=== PATIENT | female | born 1975 | race Caucasian/White ===

== ENCOUNTER 2016-06-03 11:02 | Emergency (ER) | payer OTHER ==
[~2016-06-03] VITALS: Ht 162.6 cm; Wt 91.5 kg
[2016-06-03 11:18] VITALS: Ht 162.6 cm; Wt 91.5 kg
[2016-06-03] MEDS ORDERED: morphine 4 MG/ML VIAL IV STA (11:55)
[2016-06-03] MEDS ORDERED: SOD CHLORIDE 0.9% 1,000 ML IV ONE (12:30)
[2016-06-03 12:45] LABS: BASOPHILS % 0.4 % (0.0-2.0); EOSINOPHILS # 0.2 10^3/ul (0.0-0.5); EOSINOPHILS % 2.1 % (0.0-7.0); HEMATOCRIT 37.7 % (37.0-47.0); HEMOGLOBIN 12.8 g/dl (12.0-16.0); LYMPHOCYTES # 3.1 10^3/ul (0.8-2.9); LYMPHOCYTES % 28.5 % (15.0-51.0); MEAN CORPUSCULAR HEMOGLOBIN 28.8 pg (29.0-33.0); MEAN CORPUSCULAR VOLUME 84.6 fl (82.0-101.0); MEAN PLATELET VOLUME 8.5 fl (7.4-10.4); MONOCYTE # 0.4 10^3/ul (0.3-0.9); MONOCYTES % 3.3 % (0.0-11.0); NEUTROPHIL # 7.2 10^3/ul (1.6-7.5); NEUTROPHILS % 65.7 % (39.0-77.0); PLATELET COUNT 270 10^3/UL (140-440); RED BLOOD COUNT 4.45 10^6/ul (4.20-5.40); RED CELL DISTRIBUTION WIDTH 14.4 % (11.5-14.5)
[2016-06-03 12:46] LABS: ADD UMIC NO; URINE BILIRUBIN (Dip) NEGATIVE (NEGATIVE); URINE BLOOD (Dip) NEGATIVE (NEGATIVE); URINE COLOR LT. YELLOW (YELLOW); URINE GLUCOSE (Dip) NEGATIVE (NEGATIVE); URINE KETONES (Dip) TRACE (NEGATIVE); URINE LEUKOCYTE ESTERASE (Dip) NEGATIVE (NEGATIVE); URINE NITRITE (Dip) NEGATIVE (NEGATIVE); URINE TOTAL PROTEIN (Dip) NEGATIVE (NEGATIVE); URINE UROBILINOGEN (Dip) 0.2 E.U./dL (0.1-1.0)
[2016-06-03 12:54] LABS: ALBUMIN 4.1 g/dl (3.3-4.9); CONDITION 1; POTASSIUM 3.8 mmol/L (3.5-5.1)
[2016-06-03 12:56] LABS: CREATININE 0.67 mg/dl (0.44-1.00)
[2016-06-03 12:57] LABS: ALBUMIN/GLOBULIN RATIO 1.1; BILIRUBIN,INDIRECT 0.4 mg/dl (0-1.1); BILIRUBIN,TOTAL 0.4 mg/dl (0.2-1.3); CALCIUM 9.1 mg/dl (8.4-10.2); TOTAL PROTEIN 7.8 g/dl (6.1-8.1)
--- NOTE | 2016-06-03 13:16 | RADRPT ---
PROCEDURE: CT Abdomen and Pelvis without contrast. CLINICAL INDICATION: Left lower quadrant pain TECHNIQUE: CT of the abdomen and pelvis was performed on a multi-detector scanner without IV contr ast. Coronal and sagittal images were reformatted from the axial data set. One or more of the foll owing dose reduction techniques were used: automated exposure control, adjustment of the mA and/or kV according to patient size, use of iterative reconstruction technique. CTDI = 18.2 mGy. DLP = 122 1.93 mGy-cm. COMPARISON: None. FINDINGS: CT abdomen: The lung bases are clear. The heart size is normal, without pericardial effusion. Hepatic fatty in filtration is noted, without evidence of focal mass. Cholelithiasis is seen without evidence for ch olecystitis. Biliary tree, pancreas, spleen, adrenal glands and left kidney are unremarkable. Smal l nonobstructive right renal calculi are noted, without ureterolithiasis or obstructive uropathy. T he stomach is grossly unremarkable. The aorta is of normal caliber. There is no retroperitoneal lymphadenopathy. The alessandro hepatis reg ion is clear. CT pelvis: Mild focal inflammation is seen within the central pelvic pericolonic fat (3-150), possibly indicati ng epiploic appendagitis. No bowel obstruction, free intraperitoneal air or abscess is identified. There is no diverticulosis, diverticulitis, colitis or appendicitis. Urinary bladder, uterus and a dnexa are grossly unremarkable. No pelvic mass, free fluid or lymphadenopathy is identified. The surrounding osseous structures are unremarkable. No osteolytic or osteoblastic lesion is detect ed. IMPRESSION: 1. Possible mild epiploic appendagitis in the central pelvis, as above. 2. Hepatic steatosis. 3. Cholelithiasis, without evidence for cholecystitis. 4. Small nonobstructive right renal calculi are seen, without ureterolithiasis or obstructive uropa thy. 5. No mass or lymphadenopathy is identified. RPTAT: EE .Suresh Ndiaye MD, MD Date Time Electronically viewed and signed by .Suresh Ndiaye MD, MD on 06/03/2016 13:15 .R/
--- NOTE | 2016-06-03 13:35 | RADRPT ---
PROCEDURE: US Abdomen. CLINICAL INDICATION: abdominal pain TECHNIQUE: Multiple real-time images were acquired of the patient's right upper quadrant abdomen a nd retroperitoneum utilizing a high resolution transducer. COMPARISON: 06/03/1969 FINDINGS: The liver demonstrates increased echogenicity. The liver is enlarged in size and no focal solid les ions are seen. The liver measures 19 cm in length. The portal vein is patent with normal direction o f flow. No intrahepatic biliary dilatation is seen. Multiple calcified gallstones are identified within the gallbladder. There is no pericholecystic fl uid or gallbladder wall thickening. The common bile duct measures 5.7 mm in maximal dimension. The visualized portions of the pancreas are unremarkable. The tail of the pancreas is not seen. No free fluid is identified. The right kidney is normal in size, and demonstrate normal echogenicity and cortical thickness. The right kidney measures 13 cm in long dimension. There is no evidence of hydronephrosis. Tiny right kidney stone is not seen by ultrasound. RPTAT: AA IMPRESSION: Mild hepatomegaly with fatty infiltration. Cholelithiasis. .Cb Miller MD, MD Date Time Electronically viewed and signed by .Cb Miller MD, on 06/03/2016 13:34 .S/
[2016-06-03] MEDS ORDERED: ACET325T33 PO (14:35)
[2016-06-03 14:59] VITALS: BP 136/79; PULSE 88; RESP 17; TEMP 98.1
--- NOTE | 2016-06-03 16:04 | ERD ---
ER Documentation Chief Complaint Date/Time DATE: 06/03/16 TIME: 15:53 Chief Complaint ON AND OFF LUQ PAIN X 6 MONTHS; DENIES N/V HPI 41-year-old female with a past medical history of cholelithiasis, hyperlipidemia presents the ED complaining of intermittent left lower and right lower quadrant abdominal pain that started 2 days ago. Describes the pain as a stabbing sensation and rates it a 9 out of 10. States that she had 3 episodes of non-bloody, nonmucoid diarrhea. States that her abdominal pain is worse when she eats. States that she has been taking ibuprofen without relief of her pain. Reports that her primary care physician also sent her here for a gallbladder ultrasound. States that she had an appendectomy several years ago. ROS All systems reviewed and are negative except as per history of present illness. Medications Home Meds Active Scripts Acetaminophen* (Tylenol*) 325 Mg Tablet, 2 TAB PO Q8 Y for PAIN AND OR ELEVATED TEMP, #20 TAB Prov:AMY ALEX PA-C 06/03/16 PMhx/Soc History of Surgery: Yes (abd surgery) Hx Alcohol Use: No Hx Substance Use: No Hx Tobacco Use: No Physical Exam Vitals Vital Signs Date Time Temp Pulse Resp B/P Pulse Ox O2 Delivery O2 Flow Rate FiO2 06/03/16 14:59 98.1 88 17 136/79 99 Room Air 06/03/16 11:18 98.1 61 19 131/71 97 Physical Exam Const: [id number]-[id number], well-nourished. In no acute distress. Head: Atraumatic, normocephalic Eyes: Normal Conjunctiva without injection. No purulent discharge. ENT: Normal external ear, nose. Moist oropharynx without tonsillar exudates. Non -erythematous pharynx. Uvula midline. No drooling. No trismus. Neck: No cervical midline tenderness. Full range of motion. No meningismus. No cervical lymphadenopathy. No JVD. Resp: Clear to auscultation bilaterally. No wheezing, rhonchi, rales, or crackles. No accessory muscle use. No retractions. Cardio: Regular rate and rhythm. No murmurs, rubs or gallops. Abd: Soft, nontender, non distended. Normal bowel sounds. No palpable masses. No rebound tenderness. No guarding. Negative McBurney's point. Negative psoas sign. Negative obturator sign. Skin: No petechiae or rashes Back: No midline tenderness. No CVA tenderness. Ext: No cyanosis, or edema. Neur: Awake and alert. Normal gait. Normal coordination. Psych: Normal Mood and Affect Result Diagram: 06/03/16 1224 06/03/16 1224 Results 24 hrs Laboratory Tests Test 06/03/16 12:24 Alanine Aminotransferase (ALT/SGPT) 48IU/L Albumin 4.1g/dl Albumin/Globulin Ratio 1.10 Alkaline Phosphatase 84IU/L Anion Gap 17 Aspartate Amino Transf (AST/SGOT) 58IU/L Basophils # 0.010^3/ul Basophils % 0.4% Blood Morphology Comment Blood Urea Nitrogen 10mg/dl Calcium Level 9.1mg/dl Carbon Dioxide Level 23mmol/L Chloride Level 108mmol/L Creatinine 0.67mg/dl Direct Bilirubin 0.00mg/dl Eosinophils # 0.210^3/ul Eosinophils % 2.1% Globulin 3.70g/dl Glucose Level 113mg/dl Hematocrit 37.7% Hemoglobin 12.8g/dl Indirect Bilirubin 0.4mg/dl Lipase 133U/L Lymphocytes # 3.110^3/ul Lymphocytes % 28.5% Mean Corpuscular Hemoglobin 28.8pg Mean Corpuscular Hemoglobin Concent 34.0g/dl Mean Corpuscular Volume 84.6fl Mean Platelet Volume 8.5fl Monocytes # 0.410^3/ul Monocytes % 3.3% Neutrophils # 7.210^3/ul Neutrophils % 65.7% Nucleated Red Blood Cells # 0.010^3/ul Nucleated Red Blood Cells % 0.0/100WBC Platelet Count 60770^3/UL Potassium Level 3.8mmol/L Red Blood Count 4.4510^6/ul Red Cell Distribution Width 14.4% Sodium Level 144mmol/L Total Bilirubin 0.4mg/dl Total Protein 7.8g/dl Urine Bilirubin NEGATIVE Urine Clarity CLEAR Urine Color LT. YELLOW Urine Glucose NEGATIVE% Urine Hemoglobin NEGATIVE Urine Ketones TRACE Urine Leukocyte Esterase NEGATIVE Urine Nitrite NEGATIVE Urine Specific [place] >=1.030 Urine Total Protein NEGATIVE Urine Urobilinogen 0.2 E.U./dL Urine pH 5.5 White Blood Count 11.010^3/ul Current Medications Medications (Trade) Dose Ordered Sig/Don Route PRN Reason Start Time Stop Time Status Last Admin Dose Admin Morphine Sulfate 4 mg 4 mg ONCE STAT IV 06/03/16 11:55 06/03/16 12:04 DC 06/03/16 12:58 Sodium Chloride (NS) 1,000 ml @ 1,000 mls/hr Q1H ONCE IV 06/03/16 12:30 06/03/16 13:29 DC 06/03/16 12:58 Procedures/MDM 41-year-old female with a past medical history of hyperlipidemia, cholelithiasis presents to the ED complaining of left and right lower quadrant abdominal pain. Patient is afebrile and nontoxic-appearing. Patient has normal vital signs. Patient was further worked up with CBC, CMP, lipase, UA, urine , CT of abdomen and pelvis without contrast. Patient's pain and symptoms have improved after treatment with 1 L normal saline , 4 mg IV morphine, 4 mg IV zofran. CBC: No leukocytosis. No e/o of systemic infection. No e/o anemia. CMP: No e/o severe acidosis, alkalosis, renal failure, diabetic ketoacidosis, liver disease Lipase within normal limits. Urine: No leukocyte esterase, no nitrites, no hematuria. Urine : PROCEDURE: CT Abdomen and Pelvis without contrast. CLINICAL INDICATION: Left lower quadrant pain TECHNIQUE: CT of the abdomen and pelvis was performed on a multi-detector scanner without IV contrast. Coronal and sagittal images were reformatted from the axial data set. One or more of the following dose reduction techniques were used: automated exposure control, adjustment of the mA and/or kV according to patient size, use of iterative reconstruction technique. CTDI = 18.2 mGy. DLP = 1221.93 mGy-cm. COMPARISON: None. FINDINGS: CT abdomen: The lung bases are clear. The heart size is normal, without pericardial effusion. Hepatic fatty infiltration is noted, without evidence of focal mass. Cholelithiasis is seen without evidence for cholecystitis. Biliary tree, pancreas, spleen, adrenal glands and left kidney are unremarkable. Small nonobstructive right renal calculi are noted, without ureterolithiasis or obstructive uropathy. The stomach is grossly unremarkable. The aorta is of normal caliber. There is no retroperitoneal lymphadenopathy. The alessandro hepatis region is clear. CT pelvis: Mild focal inflammation is seen within the central pelvic pericolonic fat (3-150 ), possibly indicating epiploic appendagitis. No bowel obstruction, free intraperitoneal air or abscess is identified. There is no diverticulosis, diverticulitis, colitis or appendicitis. Urinary bladder, uterus and adnexa are grossly unremarkable. No pelvic mass, free fluid or lymphadenopathy is identified. The surrounding osseous structures are unremarkable. No osteolytic or osteoblastic lesion is detected. IMPRESSION: 1. Possible mild epiploic appendagitis in the central pelvis, as above. 2. Hepatic steatosis. 3. Cholelithiasis, without evidence for cholecystitis. 4. Small nonobstructive right renal calculi are seen, without ureterolithiasis or obstructive uropathy. 5. No mass or lymphadenopathy is identified. PROCEDURE: US Abdomen. CLINICAL INDICATION: abdominal pain TECHNIQUE: Multiple real-time images were acquired of the patient's right upper quadrant abdomen and retroperitoneum utilizing a high resolution transducer. COMPARISON: 06/03/1969 FINDINGS: The liver demonstrates increased echogenicity. The liver is enlarged in size and no focal solid lesions are seen. The liver measures 19 cm in length. The portal vein is patent with normal direction of flow. No intrahepatic biliary dilatation is seen. Multiple calcified gallstones are identified within the gallbladder. There is no pericholecystic fluid or gallbladder wall thickening. The common bile duct measures 5.7 mm in maximal dimension. The visualized portions of the pancreas are unremarkable. The tail of the pancreas is not seen. No free fluid is identified. The right kidney is normal in size, and demonstrate normal echogenicity and cortical thickness. The right kidney measures 13 cm in long dimension. There is no evidence of hydronephrosis. Tiny right kidney stone is not seen by ultrasound. RPTAT: AA IMPRESSION: Mild hepatomegaly with fatty infiltration. Cholelithiasis. PROCEDURE: US Abdomen. CLINICAL INDICATION: abdominal pain TECHNIQUE: Multiple real-time images were acquired of the patient's right upper quadrant abdomen and retroperitoneum utilizing a high resolution transducer. COMPARISON: 06/03/1969 FINDINGS: The liver demonstrates increased echogenicity. The liver is enlarged in size and no focal solid lesions are seen. The liver measures 19 cm in length. The portal vein is patent with normal direction of flow. No intrahepatic biliary dilatation is seen. Multiple calcified gallstones are identified within the gallbladder. There is no pericholecystic fluid or gallbladder wall thickening. The common bile duct measures 5.7 mm in maximal dimension. The visualized portions of the pancreas are unremarkable. The tail of the pancreas is not seen. No free fluid is identified. The right kidney is normal in size, and demonstrate normal echogenicity and cortical thickness. The right kidney measures 13 cm in long dimension. There is no evidence of hydronephrosis. Tiny right kidney stone is not seen by ultrasound. RPTAT: AA IMPRESSION: Mild hepatomegaly with fatty infiltration. Cholelithiasis. Low suspicion for cholecystitis, cholangitis, gallstone pancreatitis. A differential diagnosis considered includes but is not limited to gastritis, GERD , peptic ulcer disease, cholecystitis, choledocholithiasis, cholangitis, pancreatitis, appendicitis, bowel obstruction, ileus, volvulus, nephrolithiasis , pyelonephritis, hepatitis, perforated viscus, diverticulitis, abdominal hernia , acute abdomen, mesenteric ischemia or other emergent conditions. Discharge medications: Tylenol Follow up with primary care physician in 1-2 days for referral to sustainability coordinator. Instructed patient to return to the ED sooner for any worsening symptoms. Patient's questions were answered. Patient understood and agreed with discharge plan. Patient discharged stable. Departure Diagnosis: Primary Impression: Epiploic appendagitis Additional Impressions: Nephrolithiasis Cholelithiasis Cholelithiasis location: other site Biliary obstruction: with biliary obstruction Qualified Code: K80.81 - Biliary calculus of other site with obstruction Condition: Stable Patient Instructions: Abdominal Pain, Understanding Kidney Stones, Gallstones Referrals: [facility] YOU HAVE RECEIVED A MEDICAL SCREENING EXAM AND THE RESULTS INDICATE THAT YOU DO NOT HAVE A CONDITION THAT REQUIRES URGENT TREATMENT IN THE EMERGENCY DEPARTMENT. FURTHER EVALUATION AND TREATMENT OF YOUR CONDITION CAN WAIT UNTIL YOU ARE SEEN IN YOUR DOCTORS OFFICE WITHIN THE NEXT 1-2 DAYS. IT IS YOUR RESPONSIBILITY TO MAKE AN APPOINTMENT FOR FOLOW-UP CARE. IF YOU HAVE A PRIMARY DOCTOR --you should call your primary doctor and schedule an appointment IF YOU DO NOT HAVE A PRIMARY DOCTOR YOU CAN CALL OUR PHYSICIAN REFERRAL HOTLINE AT IF YOU CAN NOT AFFORD TO SEE A PHYSICIAN YOU CAN CHOSE FROM THE FOLLOWING [facility] [address] [facility]. [facility] [address] [facility] [address] [facility] [address] [facility]. [facility] [address] [facility]. [facility]. [address] [facility]. [facility] YOU HAVE RECEIVED A MEDICAL SCREENING EXAM AND THE RESULTS INDICATE THAT YOU DO NOT HAVE A CONDITION THAT REQUIRES URGENT TREATMENT IN THE EMERGENCY DEPARTMENT. FURTHER EVALUATION AND TREATMENT OF YOUR CONDITION CAN WAIT UNTIL YOU ARE SEEN IN YOUR DOCTORS OFFICE WITHIN THE NEXT 1-2 DAYS. IT IS YOUR RESPONSIBILITY TO MAKE AN APPOINTMENT FOR FOLOW-UP CARE. IF YOU HAVE A PRIMARY DOCTOR --you should call your primary doctor and schedule and appointment IF YOU DO NOT HAVE A PRIMARY DOCTOR YOU CAN CALL OUR PHYSICIAN REFERRAL HOTLINE AT . IF YOU CAN NOT AFFORD TO SEE A PHYSICIAN YOU CAN CHOSE FROM THE FOLLOWING [facility] INSTITUTIONS: [facility] [address] [place] [address] [facility] [address] [place] [address] [facility] [address] [place] [address] [facility] URGENT CARE/SPECIALTIES Additional Instructions: Visite a del real christa garcia para un EXAMEN. Regrese a estas instalaciones si no se mejora dawit esperbamos o dawit le dharamos. AMY ALEX PA-C Jun 03, 2016 16:03
== END 2016-06-03 14:55 | disposition home or self-care (01) ==
LOC: E/R 11:02 → FTE 14:55
DX: K38.8 Other specified diseases of appendix (principal); N20.0 Calculus of kidney; K80.81 Other cholelithiasis with obstruction
CPT/HCPCS: 36415; 74176; 76705; 80053; 81003; 83690; 85025; 96374; J2270; J7030; Z7502

== ENCOUNTER 2016-07-21 12:51 | Observation (INO) | payer OTHER ==
[~2016-07-21] VITALS: Ht 160 cm; Wt 89.9 kg
[2016-07-21] VITALS (35 sets, daily range): BP systolic 108–154; BP diastolic 46–84; PULSE 56–112; RESP 9–26; Ht 160 cm; Wt 89.9 kg
[~2016-07-21 12:51] MED LIST: ACET325T33 PO
[2016-07-21] MEDS ORDERED: SOD CHLORIDE 0.9% 1,000 ML IV ONE (15:00)
[2016-07-21] MEDS ORDERED: CEFAZOLIN 2 GM/50 ML (PMX) 50 ML IVPB ONE (15:00)
[2016-07-21] MEDS ORDERED: MIDAZOLAM 1 MG/ML 2 ML INJ ONE (16:54)
[2016-07-21] MEDS ORDERED: BUPIVACAINE 0.25% (MPF) 30 ML INJ ONE (16:56)
[2016-07-21] MEDS ORDERED: morphine (1 MG/ML) 10ML SYRINGE IV PRN (17:00)
[2016-07-21] MEDS ORDERED: FENTAnyl 50 MCG/ML VIAL IV PRN (17:00)
[2016-07-21] MEDS ORDERED: DIPHENHYDRAMINE 50 MG INJ IV PRN (17:00)
[2016-07-21] MEDS ORDERED: MEPERIDINE 25 MG INJ IV PRN (17:00)
[2016-07-21] MEDS ORDERED: PROPOFOL 20 ML ONE (17:37)
[2016-07-21] MEDS ORDERED: LIDOCAINE 2% (SDV) 5 ML INJ ONE (17:37)
[2016-07-21] MEDS ORDERED: NEOSTIGMINE 3 MG/3 ML SYRINGE ONE (17:37)
[2016-07-21] MEDS ORDERED: GLYCOPYRROLATE 0.4 MG INJ ONE (17:37)
[2016-07-21] MEDS ORDERED: ONDANSETRON 4 MG INJ ONE (17:37)
[2016-07-21] MEDS ORDERED: ROCURONIUM 50 MG INJ ONE (17:37)
[2016-07-21] MEDS ORDERED: CEFAZOLIN 1 GM INJ ONE (17:44)
[2016-07-21] MEDS ORDERED: morphine 10 MG INJ ONE (17:49)
[2016-07-21] MEDS ORDERED: KETOROLAC 30 MG INJ ONE (17:51)
[2016-07-21] MEDS ORDERED: HYDROCODONE/APAP (5/325) TAB PO ONE (18:00)
[2016-07-21] MEDS: ONDANSETRON 4 MG INJ IV PRN ×2 (18:04→18:52)
[2016-07-21] MEDS: morphine (1 MG/ML) 10ML SYRINGE IV PRN ×3 (18:10→18:27)
[2016-07-21] MEDS ORDERED: FLUMAZENIL 0.5 MG INJ IV STA (19:12)
[2016-07-21] MEDS ORDERED: METOCLOPRAMIDE 10 MG INJ IV STA (19:25)
[2016-07-21] MEDS ORDERED: ONDANSETRON 4 MG INJ IV PRN (20:00)
[2016-07-21] MEDS ORDERED: ACETAMINOPHEN 325 MG TAB PO PRN (20:00)
[2016-07-21] MEDS ORDERED: morphine 2 MG INJ IV PRN (20:00)
--- NOTE | 2016-07-21 20:31 | OPR ---
DATE OF OPERATION: 07/21/2016 INDICATION: This is a 41-year-old female with symptomatic gallstones. She requests surgical excisi on of her gallbladder. Risks, alternatives, benefits, and personnel were discussed with the patient . The patient expresses understanding and consents to the operation. PREOPERATIVE DIAGNOSIS: Symptomatic gallstones. POSTOPERATIVE DIAGNOSIS: Symptomatic gallstones. OPERATION: Laparoscopic cholecystectomy. SURGEON: Jasmine Vincent MD PROPOSAL DEVELOPMENT MANAGER: Kalyan Vargas MD SPECIMENS: Gallbladder. COMPLICATIONS: None. ANESTHESIA: General. PROCEDURE: The patient was taken to the OR and prepped and draped in the usual sterile fashion. [place] rgical timeout was performed. IV antibiotics were given. Supraumbilical midline incision is made w ith a 15 blade. Dissection cautery was carried down to the fascia. The 0 Vicryl stay sutures were placed on each side of the midline. The midline was entered with cautery. Balloon Rey trocar wa s introduced. Pneumoperitoneum was established. Midepigastric 12 mm optical trocar and right upper quadrant, right upper flank 5 mm optical trocars were placed under direct visualization. Upon init ial inspection, there were some adhesions to the gallbladder. The cystic duct was identified. The critical view was established. The cystic artery is clipped and divided with 2 clips proximal, 1 cl ip distal. The cystic duct was divided using 35 mm Luck vascular load stapler. The gallbladder was taken off the gallbladder bed. There was good hemostasis. Gallbladder was retrieved using Endo Catch bag. Ports were removed under direct visualization. Stay sutures were then tied down. Skin was closed using skin luna. Local anesthesia was injected. Dry dressings were applied. Dictated By: JASMINE FITZGERALD/JAZMÍN Conf#: [id number] DID#: [id number]
[2016-07-21] MEDS: SOD CHLORIDE 0.45% 1,000 ML IV SCH (22:17)
[2016-07-22 00:15] VITALS: BP 123/64; RESP 14
[2016-07-22 05:04] LABS: ADD SCAN DIFF NO
[2016-07-22 05:14] LABS: BASOPHIL # 0.1 10^3/ul (0.0-0.1); BASOPHILS % 0.7 % (0.0-2.0); EOSINOPHILS # 0.1 10^3/ul (0.0-0.5); EOSINOPHILS % 0.6 % (0.0-7.0); HEMATOCRIT 35.2 % (37.0-47.0); HEMOGLOBIN 11.3 g/dl (12.0-16.0); LYMPHOCYTES # 3.3 10^3/ul (0.8-2.9); LYMPHOCYTES % 27.8 % (15.0-51.0); MEAN CORPUSCULAR HEMOGLOBIN 28.4 pg (29.0-33.0); MEAN CORPUSCULAR HGB CONC 32.1 g/dl (32.0-37.0); MEAN CORPUSCULAR VOLUME 88.4 fl (82.0-101.0); MEAN PLATELET VOLUME 10.3 fl (7.4-10.4); MONOCYTE # 0.5 10^3/ul (0.3-0.9); MONOCYTES % 4.4 % (0.0-11.0); NEUTROPHIL # 7.8 10^3/ul (1.6-7.5); NEUTROPHILS % 66.2 % (39.0-77.0); PLATELET COUNT 285 10^3/UL (140-415); RED BLOOD COUNT 3.98 10^6/ul (4.20-5.40); RED CELL DISTRIBUTION WIDTH 13.9 % (11.5-14.5); WHITE BLOOD COUNT 11.8 10^3/ul (4.8-10.8)
[2016-07-22 05:37] LABS: POTASSIUM 4.1 mmol/L (3.5-5.1)
[2016-07-22 05:40] LABS: CREATININE 0.77 mg/dl (0.44-1.00)
[2016-07-22 05:41] LABS: CALCIUM 8.4 mg/dl (8.4-10.2)
[2016-07-22] MEDS: SOD CHLORIDE 0.45% 1,000 ML IV SCH ×2 (06:00→10:04)
[2016-07-22] MEDS: HYDROCODONE/APAP (5/325) TAB PO PRN ×4 (06:04→19:50)
[2016-07-22 06:07] VITALS: BP 117/68; PULSE 78; RESP 18
[2016-07-22 08:56] VITALS: BP 118/65; RESP 20
[2016-07-22] MEDS ORDERED: ENOXAPARIN 40 MG/0.4 ML SYG SC SCH (09:00)
--- NOTE | 2016-07-22 14:28 | PN ---
Date/Time of Note Date/Time of Note DATE: 07/22/16 TIME: 14:28 Assessment/Plan VTE Prophylaxis VTE Prophylaxis Intervention: SCD's Lines/Catheters IV Catheter Type (from Nrs): Peripheral IV Urinary Cath still in place: No Assessment/Plan Chief Complaint/Hosp Course s/p lap nora Problems: Assessment/Plan dc home Subjective 24 Hr Interval Summary Free Text/Dictation doing well, no issues Exam/Review of Systems Vital Signs Vitals Vital Signs Date Time Temp Pulse Resp B/P Pulse Ox O2 Delivery O2 Flow Rate FiO2 07/22/16 08:56 98.6 72 20 118/65 95 07/22/16 06:07 Room Air Intake and Output 07/21/16 07/21/16 07/22/16 14:59 22:59 06:59 Intake Total 1000 ml 1180 ml Output Total 5 ml 850 ml Balance 995 ml 330 ml Exam clean dry intact Results Result Diagram: 07/22/16 0416 07/22/16 0416 Results 24 hrs Laboratory Tests Test 07/22/16 04:16 Anion Gap 13 Basophils # 0.1 Basophils % 0.7 Blood Urea Nitrogen 9 Calcium Level 8.4 Carbon Dioxide Level 27 Chloride Level 106 Creatinine 0.77 Eosinophils # 0.1 Eosinophils % 0.6 Glucose Level 105 Hematocrit 35.2 L Hemoglobin 11.3 L Lymphocytes # 3.3 H Lymphocytes % 27.8 Mean Corpuscular Hemoglobin 28.4 L Mean Corpuscular Hemoglobin Concent 32.1 Mean Corpuscular Volume 88.4 Mean Platelet Volume 10.3 # Monocytes # 0.5 Monocytes % 4.4 Neutrophils # 7.8 H Neutrophils % 66.2 Nucleated Red Blood Cells # 0.0 Nucleated Red Blood Cells % 0.0 Platelet Count 285 Potassium Level 4.1 Red Blood Count 3.98 L Red Cell Distribution Width 13.9 Sodium Level 142 White Blood Count 11.8 H Medications Medications Current Medications Sodium Chloride (1/2 NS) 1,000 ml @ 100 mls/hr Q10H IV Last administered on 10:04; Admin Dose 100 MLS/HR; Start 07/21/16 at 20:00 Enoxaparin Sodium (Lovenox) 40 mg DAILY SC Last administered on 07/22/16 08:41 ; Admin Dose 40 MG; Start 07/22/16 at 09:00 Morphine Sulfate (morphine) 2 mg Q3 PRN IV PAIN; Start 07/21/16 at 20:00 Ondansetron HCl (Zofran Inj) 4 mg Q6H PRN IV NAUSEA AND/OR VOMITING; Start at 20:00 Acetaminophen (Tylenol Tab) 650 mg Q6H PRN PO PAIN AND OR ELEVATED TEMP; Start 07/21/16 at 20:00 Acetaminophen/ Hydrocodone Bitart ([place] (5/325)) 2 tab Q4H PRN PO PAIN LEVEL 1 -5 Last administered on 07/22/16 10:03; Admin Dose 2 TAB; Start 07/21/16 at 20: 00 Debbie REID Jul 22, 2016 14:28
[2016-07-22 19:30] VITALS: BP 130/81; RESP 18
--- NOTE | 2016-07-22 20:01 | HP ---
DATE OF ADMISSION: 07/21/2016 CHIEF COMPLAINT: Recurrent upper quadrant pain. HISTORY OF PRESENT ILLNESS: The patient is a 41-year-old female who has a history of recurrent uppe r right quadrant pain and was seen by Dr. Vincent as an outpatient. Patient was diagnosed with symptoma tic cholelithiasis. The patient was brought into the hospital yesterday and underwent laparoscopic cholecystectomy. The patient has significant postoperative pain. Therefore, the patient was admitt ed for further evaluation and management. Patient denied any chest pain. The patient also was feel ing nauseated earlier, but subsequently improved. The patient did not have any recent fever or chil ls. No reported vomiting, no reported shortness of breath. No reported leg pain. No reported sens ory or motor symptoms in any extremities. The patient did not have any leg edema. REVIEW OF SYSTEMS: The rest of the review of systems was unremarkable. PAST SURGICAL HISTORY: None. ALLERGIES: NONE. SOCIAL HISTORY: No smoking, no alcohol. FAMILY HISTORY: Noncontributory. MEDICATIONS PRIOR TO ADMISSION: None. PHYSICAL EXAMINATION: GENERAL: The patient is conscious, awake, alert. VITAL SIGNS: On the day of admission, temperature 98.4, pulse 77, respirations 18, blood pressure 1 30/76, O2 saturation 98 on room air. HEENT: Atraumatic, normocephalic. Conjunctivae and lids normal. Oropharynx clear. NECK: Supple. No mass, no thyromegaly. LUNGS: Clear to auscultation. CARDIOVASCULAR: S1, S2 normal. No murmur, gallop, or rub. ABDOMEN: Soft. Patient is status post laparoscopic cholecystectomy. Incision without any bleeding or drainage. EXTREMITIES: No leg edema. NEUROLOGIC: The patient is awake, alert, oriented with no gross focal deficit. LABORATORY DATA: WBC 11.8, hemoglobin 11.3, platelet 285. Sodium 142, potassium 4.1, BUN 9, creati nine 0.7, glucose 105. IMPRESSION: Symptomatic gallstones, status post laparoscopic cholecystectomy. PLAN: The patient will be admitted on medical floor and will be started on clear liquid diet, which will be advanced as tolerated. The patient will be given Lovenox for DVT prophylaxis and will be g iven Tylenol, morphine and [place] for pain control depending upon severity. The patient will be disc harged home once cleared by Dr. Vincent. Dictated By: VIRGIE PICKENS/JAZMÍN Conf#: [id number] [facility]#: [id number]
--- NOTE | 2016-07-22 22:27 | DS ---
DATE OF ADMISSION: 07/21/2016 DATE OF DISCHARGE: 07/22/2016 DISCHARGE DIAGNOSES: Symptomatic cholelithiasis, status post laparoscopic cholecystectomy. DISCHARGE MEDICATIONS: [place] 5/325 q. 4 p.r.n. and patient was also advised to take stool softener over the counter. FOLLOWUP: The patient is to follow up with Dr. Vincent as an outpatient. REASON FOR ADMISSION: The patient is a 41-year-old female with history of recurrent upper quadrant pain and underwent gallbladder ultrasound and CT of the abdomen back in 05/2016. The patient was osman gnosed with cholelithiasis and small nonobstructive right renal calculi without ureterolithiasis or obstructive uropathy. The patient also had a gallbladder ultrasound which revealed cholelithiasis. Common bile duct was 5.7 mm. The patient was brought into the hospital and underwent laparoscopic cholecystectomy. The patient's postoperative course was uncomplicated. Patient was treated with IV fluid as preop antibiotic protocol and was given Lovenox for DVT prophylaxis. Patient was al so given Tylenol and [place] as well as IV morphine for pain control. The patient's diet was advanced and today she was eating dinner without any difficulty. PHYSICAL EXAMINATION: VITAL SIGNS: Temperature 98.4, pulse 70, respiration 18, blood pressure 130/73, O2 saturation 98% o n room air. CHEST: Clear. ABDOMEN: Soft. EXTREMITIES: No edema or tenderness. The patient was seen by Dr. Vincent and cleared her for discharge. Dictated By: VIRGIE PICKENS/JAZMÍN Conf#: [id number] DID#: [id number]
== END 2016-07-22 20:05 | disposition home or self-care (01) ==
LOC: SDS 12:51 → MS1 19:41
PROVIDERS: ADMIT Surgery; ATTEND Surgery
DX: K80.10 Calculus of gallbladder with chronic cholecystitis without obstruction (principal); E78.5 Hyperlipidemia, unspecified; E66.9 Obesity, unspecified; Z68.35 Body mass index [BMI] 35.0-35.9, adult
CPT/HCPCS: 47562; 80048; 84703; 85025; 88304; 96360; 96361; 96372; 96374; J0690; J1200; J1650; J2175; J2250; J2270; J2405; J2710; J3010; Z7500; Z7512; Z7610; G0378; J1885

== ENCOUNTER 2016-07-28 12:06 | Emergency (ER) | payer OTHER ==
[~2016-07-28] VITALS: Wt 81.9 kg
[2016-07-28] MEDS ORDERED: ONDANSETRON 4 MG INJ IV STA (12:18)
[2016-07-28] MEDS ORDERED: morphine 4 MG/ML VIAL IV STA (12:18)
[2016-07-28 12:48] LABS: ADD SCAN DIFF NO
[2016-07-28 12:53] LABS: BASOPHIL # 0.1 10^3/ul (0.0-0.1); EOSINOPHILS # 0.4 10^3/ul (0.0-0.5); HEMOGLOBIN 12.5 g/dl (12.0-16.0); LYMPHOCYTES # 3.2 10^3/ul (0.8-2.9); LYMPHOCYTES % 36.9 % (15.0-51.0); MEAN CORPUSCULAR HEMOGLOBIN 28.6 pg (29.0-33.0); MEAN CORPUSCULAR HGB CONC 32.1 g/dl (32.0-37.0); MEAN CORPUSCULAR VOLUME 89.2 fl (82.0-101.0); MONOCYTE # 0.5 10^3/ul (0.3-0.9); MONOCYTES % 5.3 % (0.0-11.0); NEUTROPHIL # 4.6 10^3/ul (1.6-7.5); NEUTROPHILS % 52.5 % (39.0-77.0); PLATELET COUNT 317 10^3/UL (140-415); RED BLOOD COUNT 4.37 10^6/ul (4.20-5.40); RED CELL DISTRIBUTION WIDTH 13.7 % (11.5-14.5); WHITE BLOOD COUNT 8.8 10^3/ul (4.8-10.8)
--- NOTE | 2016-07-28 13:00 | RADRPT ---
PROCEDURE: Chest Radiograph. CLINICAL INDICATION: Abdominal pain. Chest pain. TECHNIQUE: Single frontal chest radiograph. COMPARISON: None available FINDINGS: The cardiomediastinal silhouette is within normal limits. No infiltrate or effusion is seen. Th e bones are intact. IMPRESSION: 1. Unremarkable chest radiograph. RPTAT: KK .Reed Shah MD, MD Date Time Electronically viewed and signed by .Reed Shah MD, on 07/28/2016 13:00 .B/
[2016-07-28 13:05] LABS: ALBUMIN 3.9 g/dl (3.3-4.9); POTASSIUM 3.6 mmol/L (3.5-5.1)
[2016-07-28 13:07] LABS: BILIRUBIN,INDIRECT 0.3 mg/dl (0-1.1); BILIRUBIN,TOTAL 0.3 mg/dl (0.2-1.3); CREATININE 0.71 mg/dl (0.44-1.00)
[2016-07-28 13:08] LABS: ALBUMIN/GLOBULIN RATIO 1.08; CALCIUM 9.4 mg/dl (8.4-10.2); TOTAL PROTEIN 7.5 g/dl (6.1-8.1)
[2016-07-28 13:35] LABS: ADD UMIC YES; URINE BILIRUBIN (Dip) NEGATIVE (NEGATIVE); URINE BLOOD (Dip) TRACE (NEGATIVE); URINE COLOR LT. YELLOW (YELLOW); URINE GLUCOSE (Dip) NEGATIVE (NEGATIVE); URINE KETONES (Dip) NEGATIVE (NEGATIVE); URINE LEUKOCYTE ESTERASE (Dip) TRACE (NEGATIVE); URINE NITRITE (Dip) NEGATIVE (NEGATIVE); URINE TOTAL PROTEIN (Dip) NEGATIVE (NEGATIVE); URINE UROBILINOGEN (Dip) 0.2 E.U./dL (0.1-1.0)
[2016-07-28 13:53] LABS: BACTERIA,URINE FEW; SQUAMOUS EPITHELIAL CELL,UR FEW; URINE RBCS 0-2 /HPF (0)
[2016-07-28] MEDS ORDERED: SOD CHLORIDE 0.9% 100 ML ONE (14:36)
[2016-07-28] MEDS ORDERED: IOHEXOL 300MG/ML 150 ML BTL ONE (14:36)
--- NOTE | 2016-07-28 15:05 | RADRPT ---
PROCEDURE: CT abdomen and pelvis with contrast CLINICAL INDICATION: Abdominal pain TECHNIQUE: Continues 2.5 mm axial images were obtained from the domes of the diaphragms to the inf erior pubic rami following intravenous injection of 100 cc of Isovue 300. The calculated dose lengt h product (DLP) = 886.22 mGy-cm. Exam CTDlvol = 13.72 mGy. One or more of the following dose redu ction techniques were used: Automated exposure control, adjustment of the mA and or KV according to patient size, or use of iterative reconstruction technique. COMPARISON: 06/03/2016 FINDINGS: Images through the lung bases demonstrate calcified granuloma in the left lower lobe. Lung bases ar e otherwise clear. No pleural pericardial fluid is seen. There is interval cholecystectomy. There is small amount of fluid and debris/surg-seal in the gall bladder fossa. This is normal for postoperative change. No biliary duct dilatation is seen. There is fatty change of the liver. Otherwise, liver, pancreas, spleen, and adrenals are within normal l imits. As before there are nonobstructing right intrarenal calculi which are not as well seen. The re is no obstructive uropathy. Aorta is normal in caliber. No pathologically enlarged mesenteric l ymph nodes are seen. The stomach and small bowel loops are within normal limits. No small bowel di latation or obstruction is identified. No intraperitoneal abscess or free air seen. There is evidence of recent laparoscopic surgery with trocar tracks in the anterior abdominal wall. No abdominal wall fluid collection is seen. CT pelvis: Images through the pelvis demonstrate no free fluid, free air, abscess. Bladder is part ially distended grossly unremarkable. Uterus and adnexa are within normal limits. There is small f ollicles in the ovary. Evaluation of the colon demonstrates no diverticulosis, diverticulitis or ac qagan tayagungin colitis. Normal appendix is visualized. The terminal ileum is unremarkable. There are no path ologically enlarged iliac chain lymph nodes. No destructive bony lesions are seen. IMPRESSION: 1. Status post recent cholecystectomy. There is normal postoperative fluid and debris in the gallb ladder fossa.. 2. No abscess, or free air seen. 3. Postoperative changes in the anterior abdominal wall from trocar insertions. No subcutaneous fl uid collection identified 4. No biliary duct dilatation. 5. Fatty change liver. 6. Right nephrolithiasis. No obstructive uropathy. 7. Previously questioned area of epiploic appendagitis has resolved. 8. 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
--- NOTE | 2016-07-28 16:10 | ERD ---
ER Documentation Chief Complaint Date/Time DATE: 07/28/16 TIME: 16:03 Chief Complaint abdominal pain s/p lap choley on 07/21/16. no n/v/ some diarrhea noted. HPI Patient is a 41-year-old female with recent cholecystectomy performed on July [address] Vincent who presents with 2 days of lower abdominal pain started that started suddenly while coughing. Pain is exacerbated by cough, is mild when not coughing no radiation. Pain is moderate in severity and dull. No fevers, no vomiting. No chest pain, no dyspnea, no hemoptysis. patient does report a few episodes of diarrhea, nonbloody. No dysuria. Patient is taking Hutchinson for pain, 1 tab every 6 hours. Patient has scheduled follow-up with Dr. Vincent in 1 week. ROS All systems reviewed and are negative except as per history of present illness. Medications Home Meds Discontinued Scripts Acetaminophen* (Tylenol*) 325 Mg Tablet, 2 TAB PO Q8 Y for PAIN AND OR ELEVATED TEMP, #20 TAB Prov:AMY ALEX PA-C 06/03/16 Allergies Allergies: Coded Allergies: No Known Allergy (Unverified , 07/28/16) PMhx/Soc Past medical history: None Past surgical history: Cholecystectomy 07/17/2016 Social history: denies tobacco and alcohol History of Surgery: Yes (APPENDECTOMY, BTL) Anesthesia Reaction: No Hx Neurological Disorder: No Hx Respiratory Disorders: No Hx Cardiac Disorders: No Hx Psychiatric Problems: No Hx Miscellaneous Medical Probl: No Hx Alcohol Use: No Hx Substance Use: No Hx Tobacco Use: No Smoking Status: Never smoker FmHx Noncontributory Family History: No diabetes Physical Exam Vitals Vital Signs Date Time Temp Pulse Resp B/P Pulse Ox O2 Delivery O2 Flow Rate FiO2 07/28/16 12:09 98.9 89 20 129/76 98 Physical Exam Const: Alert, oriented, no acute distress Head: Atraumatic Eyes: Normal Conjunctiva ENT: Normal External Ears, Nose and Mouth. Neck: Full range of motion..~ No meningismus. Resp: Clear to auscultation bilaterally Cardio: Regular rate and rhythm, no murmurs Abd: Soft, mild suprapubic tenderness, non distended. Normal bowel sounds. No guarding or rebound. Multiple incision sites clean, dry and intact. No erythema. No wound dehiscence. Skin: No petechiae or rashes Back: No midline or flank tenderness Ext: No cyanosis, or edema Neur: Awake and alert Psych: Normal Mood and Affect Result Diagram: 07/28/16 1230 07/28/16 1230 Results 24 hrs Laboratory Tests Test 07/28/16 12:30 07/28/16 12:50 Alanine Aminotransferase (ALT/SGPT) 49IU/L Albumin 3.9g/dl Albumin/Globulin Ratio 1.08 Alkaline Phosphatase 90IU/L Anion Gap 18 Aspartate Amino Transf (AST/SGOT) 35IU/L Basophils # 0.110^3/ul Basophils % 1.0% Blood Urea Nitrogen 10mg/dl Calcium Level 9.4mg/dl Carbon Dioxide Level 25mmol/L Chloride Level 107mmol/L Creatinine 0.71mg/dl Direct Bilirubin 0.00mg/dl Eosinophils # 0.410^3/ul Eosinophils % 4.0% Globulin 3.60g/dl Glucose Level 121mg/dl Hematocrit 39.0% Hemoglobin 12.5g/dl Indirect Bilirubin 0.3mg/dl Lipase 120U/L Lymphocytes # 3.210^3/ul Lymphocytes % 36.9% Mean Corpuscular Hemoglobin 28.6pg Mean Corpuscular Hemoglobin Concent 32.1g/dl Mean Corpuscular Volume 89.2fl Mean Platelet Volume 10.0fl Monocytes # 0.510^3/ul Monocytes % 5.3% Neutrophils # 4.610^3/ul Neutrophils % 52.5% Nucleated Red Blood Cells # 0.010^3/ul Nucleated Red Blood Cells % 0.0/100WBC Platelet Count 14460^3/UL Potassium Level 3.6mmol/L Red Blood Count 4.3710^6/ul Red Cell Distribution Width 13.7% Sodium Level 146mmol/L Total Bilirubin 0.3mg/dl Total Protein 7.5g/dl White Blood Count 8.810^3/ul Urine Bacteria FEW Urine Bilirubin NEGATIVE Urine Clarity CLEAR Urine Color LT. YELLOW Urine Glucose NEGATIVE% Urine Hemoglobin TRACE Urine Ketones NEGATIVE Urine Leukocyte Esterase TRACE Urine Microscopic RBC 0-2/HPF Urine Microscopic WBC 0-2/HPF Urine Nitrite NEGATIVE Urine Specific [place] 1.010 Urine Squamous Epithelial Cells FEW Urine Total Protein NEGATIVE Urine Urobilinogen 0.2 E.U./dL Urine pH 6.5 Current Medications Medications (Trade) Dose Ordered Sig/Don Route PRN Reason Start Time Stop Time Status Last Admin Dose Admin Morphine Sulfate (morphine) 4 mg ONCE STAT IV 07/28/16 12:18 07/28/16 12:19 DC 07/28/16 12:35 Ondansetron HCl (Zofran Inj) 4 mg ONCE STAT IV 07/28/16 12:18 07/28/16 12:19 DC 07/28/16 12:34 IV Flush 10 ml 10 ml STK-MED ONCE .ROUTE 07/28/16 14:36 07/28/16 14:37 DC 07/28/16 15:08 Sodium Chloride (NS) 100 ml @ ud STK-MED ONCE .ROUTE 07/28/16 14:36 07/28/16 14:37 DC 07/28/16 15:08 Iohexol (Omnipaque 300mg/ ml) 150 ml STK-MED ONCE .ROUTE 07/28/16 14:36 07/28/16 14:37 DC 07/28/16 15:09 Procedures/MDM Chest x-ray: No acute disease CT abdomen and pelvis: Status post recent cholecystectomy. There is normal postoperative fluid and debris in the gallbladder fossa.. 2. No abscess, or free air seen. 3. Postoperative changes in the anterior abdominal wall from trocar insertions. No subcutaneous fluid collection identified 4. No biliary duct dilatation. 5. Fatty change liver. 6. Right nephrolithiasis. No obstructive uropathy. 7. Previously questioned area of epiploic appendagitis has resolved. 8. 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 Relatively benign exam. no peritoneal signs. Labs UA and CT scan are benign. There are no findings of surgical site infection. No signs of intra-abdominal abscess. Pain began with coughing and is likely due to normal postoperative incisional pain. No evidence of wound dehiscence. Stable for follow-up with Dr. Vincent as scheduled. I have advised the patient that she can take 2 Hutchinson as every 6 hours if necessary for pain. There is no evidence of pneumonia, no dyspnea or chest pain to suggest pulmonary embolism, and vital signs are normal Departure Diagnosis: Primary Impression: Post-operative pain Additional Impression: Cough Condition: SUNNI Diaz Jul 28, 2016 16:10
[2016-07-28 16:20] VITALS: BP 114/62; PULSE 55; RESP 17; TEMP 98.6
== END 2016-07-28 16:52 | disposition home or self-care (01) ==
LOC: E/R 12:06
DX: G89.18 Other acute postprocedural pain (principal); R05 Cough
CPT/HCPCS: 71010; 74177; 80053; 81001; 83690; 85025; 96374; 96375; J2270; J2405; Q9967; Z7502; Z7610; 81003

== ENCOUNTER 2016-08-06 07:53 | Emergency (ER) | payer OTHER ==
[~2016-08-06] VITALS: Wt 89.0 kg
[2016-08-06] MEDS ORDERED: AZIT250T94 PO (08:57)
[2016-08-06] MEDS ORDERED: IBUP-1542 PO (08:58)
[2016-08-06] MEDS ORDERED: D-ME473S18 PO (08:58)
[2016-08-06] MEDS ORDERED: CETI10CA PO (09:00)
--- NOTE | 2016-08-06 09:10 | ERD ---
ER Documentation Chief Complaint Date/Time DATE: 08/06/16 TIME: 09:03 Chief Complaint COUGH SORE THROAT AND CONGESTION FOR THE PAST 2 WKS . NO DISTRESS. HPI This a 41-year-old female who presents to the emergency department today complaining of cough sore throat and congestion since her surgery on the . states that she has back pain from coughing. States she has taken some tea for her cough. Patient states she has pain throughout her body. Denies any fevers or chills. ROS All systems reviewed and are negative except as per history of present illness. Medications Home Meds Active Scripts Cetirizine Hcl* (Zyrtec*) 10 Mg Capsule, 10 MG PO DAILY, #14 TAB.CHEW Prov:MAYA CEBALLOS PA-C 08/06/16 Ibuprofen* (Motrin*) 600 Mg Tab, 600 MG PO Q6, #30 TAB Prov:MAYA CEBALLOS PA-C 08/06/16 Dextromethorphan Hb-Promethazine Hcl (Promethazine DM Syrup) 473 Ml Syrup, 5 ML PO Q6H Y for COUGH, #4 OZ Prov:MAYA CEBALLOS PA-C 08/06/16 Azithromycin* (Zithromax*) 250 Mg Tablet, 250 MG PO .ZPACK DIRECTED, #6 TAB TAKE 500 MG (2 TABS) THE FIRST DAY THEN 250 MG (1 TAB) DAYS 2-5 Prov:MAYA CEBALLOS PA-C 08/06/16 Allergies Allergies: Coded Allergies: No Known Allergy (Unverified , 07/28/16) PMhx/Soc History of Surgery: Yes (APPENDECTOMY, BTL) Anesthesia Reaction: No Hx Neurological Disorder: No Hx Respiratory Disorders: No Hx Cardiac Disorders: No Hx Psychiatric Problems: No Hx Miscellaneous Medical Probl: No Hx Alcohol Use: No Hx Substance Use: No Hx Tobacco Use: No Smoking Status: Never smoker Physical Exam Vitals Vital Signs Date Time Temp Pulse Resp B/P Pulse Ox O2 Delivery O2 Flow Rate FiO2 08/06/16 07:56 97.9 77 21 121/71 96 Physical Exam Const: No acute distress Head: Atraumatic Eyes: Normal Conjunctiva ENT: Ears TMs normal. Nose no drainage. Throat no erythema no exudate Neck: Full range of motion..~ No meningismus. Resp: Clear to auscultation bilaterally. No absent breath sounds. No wheezing. Cardio: Regular rate and rhythm, no murmurs Abd: Soft, non tender, non distended. Normal bowel sounds. Evidence of surgical scars. Well-healed Skin: No petechiae or rashes Back: No midline or flank tenderness Ext: No cyanosis, or edema Neur: Awake and alert Psych: Normal Mood and Affect Procedures/MDM This a 41-year-old female who presents the emergency department today complaining of cough and congestion and sore throat since her surgery. Patient was seen here in the emergency department on July 28, 2016 for postoperative pain after a cough at that time and was seen by Dr. Carrington at that time. Patient had had a cholecystectomy on July [address] Vincent. Patient had a chest x-ray on July 28 time that was unremarkable. Her CT scan done at the time of the abdomen showed old granulomatous disease in the lung bases. I do not feel the patient requires a repeat chest x-ray today. Patient is afebrile and otherwise well-appearing. Her lung exam is benign. She is not tachycardic. Her respirations are within normal limits. Patient's cough and sore throat may be related to possible intubation however patient will be given a prescription for azithromycin to treat possible bronchitis. I have low suspicion for PE, abscess, pneumonia, pleural effusion. Patient was also given a prescription for promethazine, Zyrtec and Motrin for her pain. I have low suspicion for strep pharyngitis, peritonsillar abscess, retropharyngeal abscess, otitis media, PNA, sinusitis, abscess, meningitis, sepsis, or other acute infectious bacterial process. At this time the patient is stable for discharge and outpatient management. They should follow up with their PCP in the next 1-2. They may return to the emergency department sooner if symptoms persist or worsen. Patient understood and agreed with the plan. Departure Diagnosis: Primary Impression: Cough Condition: Fair Patient Instructions: Cough, Chronic, Uncertain Cause, (Adult) Referrals: your clinic Additional Instructions: Llame al doctor MELVA y alyssa jp YAN PARA DENTRO DE 1-2 MORAN.Dgale a la secretaria que nosotros le instruimos hacer esta yan.Avise o llame si del real condicin se empeora antes de la yan. Regresa aqui si peor o no mejor. Take medications as prescribed Take Motrin or Tylenol for pain MAYA CEBALLOS PA-C Aug 06, 2016 09:10
== END 2016-08-06 09:30 | disposition home or self-care (01) ==
LOC: FTE 07:53
DX: R05 Cough (principal)
CPT/HCPCS: 99284